=== PATIENT | female | born 1990 | race Caucasian/White ===

== ENCOUNTER 2019-05-25 14:35 | Emergency (ER) | payer OTHER, SELFPAY ==
--- NOTE | 2019-05-25 14:41 | DI.RAD.S_ITS ---
PROCEDURE: XR FINGER RT MIN 2V INDICATIONS: crush injury 4th digit TECHNIQUE: 3 views of the right hand acquired. COMPARISON: None. FINDINGS: Bones: There is a minimally displaced transverse fracture of the 4th distal phalanx. No dislocations. Soft tissues: No suspicious soft tissue calcifications. IMPRESSION: 1. Minimally displaced fracture of the 4th distal phalanx. Dictated by: Gonsalo Bartlett M.D. on 05/25/2019 at 15:17 Approved by: Gonsalo Bartlett M.D. on 05/25/2019 at 15:18
[2019-05-25 14:42] VITALS: BP 108/82; PULSE 85; RESP 20; TEMP 36.2; O2SAT 100
--- NOTE | 2019-05-25 14:45 | ED.UPPEXIN ---
HPI - Extremity Injury (Upper) General Chief Complaint: Extremity Injury, Upper Stated Complaint: Smashed right ring finger at work Time Seen by Provider: 05/25/19 14:40 Source: patient Mode of arrival: ambulatory Limitations: no limitations History of Present Illness HPI narrative: Patient comes emergency department complaining of right ring finger pain after smashing her finger in a folding metal bed. Patient states the injury happened right before this. Patient states that it hurts to move her DIP joint. She denies any other injuries. Patient is up-to-date on tetanus. No other complaints at this time. Review of Systems Constitutional Denies chills, Denies fever(s), Denies lethargy and Denies weakness Eyes Denies change in vision, Denies eye discharge, Denies irritation and Denies loss of vision ENT Ears, Nose, Mouth, and Throat: Denies change in voice, Denies neck pain and Denies sore throat Cardiovascular Denies chest pain, Denies irregular heart rhythm, Denies lightheadedness, Denies palpitations, Denies dyspnea, Denies dyspnea on exertion and Denies orthopnea Respiratory Denies cough, Denies dyspnea, Denies dyspnea on exertion and Denies wheezing Gastrointestinal Gastrointestinal: Denies abdominal pain, Denies change in bowel habits, Denies diarrhea, Denies nausea and Denies vomiting Genitourinary Denies hematuria, Denies flank pain, Denies urinary incontinence and Denies urinary urgency Musculoskeletal Denies neck pain Comments: Right ring finger tip pain. Integumentary/Breasts Denies pruritus, Denies erythema, Denies rash and Denies wounds Comments: Bleeding from right ring finger cuticle. Neurologic Denies confusion, Denies loss of vision and Denies weakness Psychiatric Denies anxiety, Denies confusion, Denies depression, Denies homicidal ideation and Denies suicidal ideation Endocrine Denies palpitations Hematologic/Lymphatic Denies easy bruising Allergic/Immunologic Denies wheezing [facility] Medical History Healthy adult (Acute) Surgical History No pertinent past surgical history (Acute) Social History Smoking Status: Never smoker Exam Initial Vital Signs Initial Vital Signs: Vital Signs Temperature 97.1 F L 05/25/19 14:42 Pulse Rate 85 05/25/19 14:42 Respiratory Rate 20 05/25/19 14:42 Blood Pressure 108/82 05/25/19 14:42 Pulse Oximetry 100 05/25/19 14:42 Const General: cooperative and well developed Nutritional Appearance: well nourished Orientation: alert, awake, oriented x3 and not confused [facility] Head: normocephalic and atraumatic Ears: external ears normal Nose: external nose normal and No nasal discharge Face and sinus: face symmetric and No dry mucous membranes Mouth: oral mucosae normal and moist mucous membranes Teeth and gingiva: dentition normal Eyes General: appearance normal, both eyes and all related structures Eyelids: eyelids normal Conjunctivae: conjunctivae normal Sclera: sclerae normal Pupils: PERRL EOM: EOM intact bilaterally Neck Neck: normal visual inspection, trachea midline, No lymphadenopathy, No midline deformity and No JVD Lymphatic: No lymphedema Chest Chest: normal inspection of the chest Resp Effort & Inspection: normal respiratory effort, able to speak in complete sentences, no respiratory distress and no use of accessory muscles Cardio Rate: regular rate Rhythm: regular rhythm Pulses: normal peripheral pulses Back/Spine/Pelvis Cervical Spine: cervical ROM normal Skin General: no rashes or lesions noted, No jaundice and No petechiae Other: Patient has very mild bit of bleeding from a skin tear at her right ring finger cuticle. There is no nail injury. A very small subungual hematoma is noted at the base of the patient's nail, just distal to the cuticle. Neuro General: alert, oriented x3, gait normal and no focal motor deficits Speech: speech normal Extrem General: full ROM Right upper extremity: hand Details: tenderness Location: of the 4th digit (Severe ) Location: at the distal phalanx, at the nailbed and at the DIP joint, abnormal ROM of finger (Decreased at DIP joint, right ring finger; held in extension, can flex mildly.) and other Psych Appearance: well kempt Mental Status: mental status grossly normal Attitude: cooperative Thought Content: normal and suicidality Judgment: judgment good Course Course Narrative: Patient had limited range of motion at her right ring finger DDAVP, secondary to pain, but could hold the finger in extension, and was able to flex mildly at that joint, against resistance. This was limited by pain. I did not feel the patient showed evidence of a tendon injury. I offered the patient a digital block for comfort, but she declined. I also offered her oral analgesia in the way of ibuprofen, as she had driven herself, but the patient declined, stating that she has ibuprofen at home. She stated her would be coming to the emergency department soon. The patient was sent for an x-ray of the finger, which showed a single fracture through the middle portion of the distal phalanx. Patient was placed in an aluminum foam splint. I have given her hand specialty follow-up, and have advised her to keep the splint on until cleared by them. We have discussed home management of symptoms, as well as the usual indications for return. Orders Ordered: ED Orders 05/25/19 14:41 XR finger RT min 2V Stat Vital Signs - 8 hr 05/25/19 14:42 Temperature 97.1 F L Pulse Rate 85 Respiratory Rate 20 Blood Pressure 108/82 Pulse Oximetry 100 MDM - Extremity Injury (Upper) Medical Records Attestation: I reviewed the patient's medical records. Imaging Data Finger x-ray: Radiologist's impression: PROCEDURE: XR FINGER RT MIN 2V INDICATIONS: crush injury 4th digit TECHNIQUE: 3 views of the right hand acquired. COMPARISON: None. FINDINGS: Bones: There is a minimally displaced transverse fracture of the 4th distal phalanx. No dislocations. Soft tissues: No suspicious soft tissue calcifications. IMPRESSION: 1. Minimally displaced fracture of the 4th distal phalanx. Dictated by: Gonsalo Bartlett M.D. on 05/25/2019 at 15:17 Approved by: Gonsalo Bartlett M.D. on 05/25/2019 at 15:18 Discharge Plan Departure Patient Disposition: Home Clinical Impression: Finger fracture, right Qualifiers: Encounter type: initial encounter Finger: ring finger Fracture type: closed Phalanx: distal Fracture alignment: nondisplaced Qualified Code(s): S62.664A - Nondisplaced fracture of distal phalanx of right ring finger, initial encounter for closed fracture Discharge Date/Time: 05/25/19 15:49 Interventions: ED Discharge Assessment Last Done: 05/25/19 15:49 Instructions: DI for Finger Fracture Activity Restrictions/Additional Instructions: Please keep your splint on until you follow up with the hand specialist. Please call tomorrow morning to make a follow-up appointment. Referrals: Shabbir Leonard MD [Non-Staff] -
--- NOTE | 2019-05-25 15:47 | PC.NURSE ---
tube gauze with metal splint applied. +distal cms intact.
== END 2019-05-25 15:49 | disposition home or self-care (01) ==
PROVIDERS: Emergency Provider Emergency Medicine
DX: S62.664A Nondisplaced fracture of distal phalanx of right ring finger, initial encounter for closed fracture (principal); W23.0XXA Caught, crushed, jammed, or pinched between moving objects, initial encounter; Y99.0 Civilian activity done for income or pay
CPT/HCPCS: 29130; 73140; 99283

== ENCOUNTER → 2021-02-22 12:21 | Outpatient (CLI) | payer SELFPAY | PROVIDERS: Visit Provider Physician Assistant | DX: N89.8 Other specified noninflammatory disorders of vagina (principal); R30.0 Dysuria | CPT/HCPCS: 87077; 87086; 87210 ==